=== PATIENT | female | born 1995 | race Caucasian/White ===

== ENCOUNTER 2019-11-16 22:37 | Observation (INO) | payer MEDICAID, SELFPAY ==
[2019-11-16 22:38] VITALS: BP 111/61; PULSE 62; RESP 16; TEMP 36.3; O2SAT 98; BMI 19.6
--- NOTE | 2019-11-16 22:43 | EKG12_ITS ---
Test Reason : SUBSTANCE ABUSE Blood Pressure : / mmHG Vent. Rate : 049 BPM Atrial Rate : 049 BPM P-R Int : 140 ms QRS Dur : 074 ms QT Int : 432 ms P-R-T Axes : 055 035 051 degrees QTc Int : 390 ms Sinus bradycardia Otherwise normal ECG Confirmed by ZOHAIB LE, MECHE ([id number]), food editor BREEZY MELGAR ([id number]) on 11/19/2019 1:03:14 PM Referred By: CL Confirmed By:MECHE PENNY MD
--- NOTE | 2019-11-16 22:45 | ED.VIS.GEN ---
History of Present Illness Chief Complaint: Substance Abuse Informant: Patient Onset: Today Narrative: 24-year-old female with no significant past medical history presents with concern for detox from fentanyl. States that she last used 5 hours ago. Has no physical complaints at this time. Last menstrual period 2 weeks ago. No concern for . Past Medical History - Allergies and Home Meds Allergies/Adverse Reactions: Allergies No Known Allergies Allergy (Verified 11/16/19 22:40) Primary Care Physician: Sunil Doctor,Out of [Primary Care Provider] - Prior records reviewed: Yes Past Medical History: None Surgical History: no surgical history Lives: Spouse/ Significant Other Smoking Status: Current every day smoker Alcohol: None Drugs: - - fentanyl Review of Systems General: Denies: Chills, Fever, Sweats Eyes: Denies: Visual changes - bilaterally, Diplopia ENT: Denies: Rhinorrhea, Sore throat Cardiovascular: Denies: Chest pain, Palpitations Respiratory: Denies: Dyspnea, Cough, Dyspnea on exertion Gastrointestinal: Denies: Abdominal pain, Nausea, Vomiting, Diarrhea, Melena, Hematochezia Genitourinary: Denies: Dysuria, Hematuria, Frequency Musculoskeletal: Denies: Back pain, Extremity Pain Skin: Denies: Rash, Wounds Neurological: Denies: Headache, Weakness, Numbness Physical Exam Vital Signs/Narrative: Vital Signs Temp Pulse Resp BP Pulse Ox 11/16/19 22:38 97.4 F L 62 16 111/61 98 Inital Vital Signs reviewed: Yes General: Well nourished, Well developed, No Acute Distress Head: Normocephalic, Atraumatic Eyes: Perrl, EOMI ENT: Moist mucous membranes, No rhinorrhea Neck: Supple, Nontender Cardiovascular: Regular rate, Regular rhythm, No murmurs Respiratory: No distress, CTA bilaterally, Chest nontender Abdomen: Soft, Nontender, Nondistended, Normal bowel sounds Back: Nontender, Normal Inspection Extremities: Nontender, No edema Skin: Normal color, No rash Neurological: Alert, Oriented x3, Cranial nerves II-XII grossly intact, Normal Strength, Normal Sensation Psychological: Normal affect, Normal Mood Diagnostic/Tx/Re-eval Laboratory Data 11/16/19 11/16/19 11/16/19 23:04 23:04 23:04 Sodium 139 Potassium 4.2 Chloride 105 Carbon Dioxide 29.0 Anion Gap 5 BUN 8 Creatinine 0.74 Estim Creat Clear Calc 93.09 Est GFR (MDRD) Af Amer 123 Est GFR (MDRD) Non-Af 102 BUN/Creatinine Ratio 10.8 Glucose 106 Calcium 8.6 Total Bilirubin 0.10 L AST 14 L ALT 15 Alkaline Phosphatase 54 Total Protein 6.5 Albumin 3.5 Globulin 3.0 Albumin/Globulin Ratio 1.2 Urine Test Ur Drug Screen Comment Ethyl Alcohol 7.0 11/16/19 23:04 Sodium Potassium Chloride Carbon Dioxide Anion Gap BUN Creatinine Estim Creat Clear Calc Est GFR (MDRD) Af Amer Est GFR (MDRD) Non-Af BUN/Creatinine Ratio Glucose Calcium Total Bilirubin AST ALT Alkaline Phosphatase Total Protein Albumin Globulin Albumin/Globulin Ratio Urine Test Negative Ur Drug Screen Comment Ethyl Alcohol - Rhythm Strip Rhythm Strip: Sinus Bradycardia Rate: 49 Ectopy: None - EKG Initial EKG Interpretation: Sinus Bradycardia - Sinus bradycardia at 49 bpm. IA interval 140 ms. QTC of 390 ms. No evidence of ST elevation or depression at this time. - Medical Decision Making Patient appears well nontoxic. Vital signs within normal limits. Lab work within normal limits. Patient will be admitted for further detoxification from opiates. Stable at time of admission. ED Disposition - Plan for ED Patient: Disposition: Acute Care Hospital [facility] Diagnosis: Opiate dependence Referrals: Sunil Doctor,Out of [Primary Care Provider] -
[2019-11-16 23:30] LABS: Internal QC Validated? YES +Cl - CLEAR BKGD; Pregnancy, Urine Negative Negative
[2019-11-16 23:32] LABS: ALB/GLOB Ratio 1.2 RATIO (0.9-2.4); AST(SGOT) 14 U/L (15-37); Alanine Aminotransfer ALT/SGPT 15 U/L (13-56); Albumin, Serum 3.5 g/dL (3.2-5.0); Alkaline Phosphatase 54 U/L (45-117); Anion Gap 5 (5-15); BUN 8 mg/dL (7-18); BUN/Creat Ratio 10.8 RATIO (10-20); Calcium,Total 8.6 mg/dL (8.5-10.1); Chloride 105 mmol/L (98-107); Creatinine, Serum 0.74 mg/dL (0.55-1.02); EST Glomerular Filtration Rate 102 mL/min (>60); Est Glom Filt Rate - Afr Amer 123 mL/min (>60); Estimated Creatinine Clearance 93.09 ml/min; Glucose 106 mg/dL (74-106); Potassium 4.2 mmol/L (3.5-5.1); Protein, Total 6.5 g/dL (6.4-8.2); Sodium Level 139 mmol/L (136-145)
--- NOTE | 2019-11-16 23:38 | HP.PCM_ITS ---
Problem List (1) Opioid abuse Status: Acute History of Present Illness Date of Admission: 11/16/19 Chief Complaint: Request for medical stabilisation for opioid withdrawal The patient is a 24 year old F with no significant past medical history who comes in requesting for medical stabilization for opioid withdrawal. Patient uses fentanyl on a regular basis. She has been trying to quit unsuccessfully. She last used fentanyl 6 hours before admission. She denied any withdrawal symptoms. Vitals in the ED showed temperature of 97.4F, heart rate 62, blood pressure 111/61, respiratory to 16, SPO2 is 98% on room air. CMP was unremarkable. Urine tox was positive for cannabinoids, alcohol level was 7.0 Past Medical History Allergies No Known Allergies Allergy (Verified 11/16/19 22:40) Home Medications: Ambulatory Orders Medication Instructions Recorded NK 11/16/19 Surgical History: no surgical history Psychiatric History: No pertinent psych hx [employer] ADVISOR History: spontaneous Lives: Spouse/ Significant Other Smoking Status: Current every day smoker Tobacco Use: Cigarettes Alcohol: None Drugs: Marijuana, - - fentanyl - *Family History Maternal History Items: No pertinent history Paternal History Items: No pertinent history Review of Systems Constitutional: Denies: Anorexia, Chills, Fever, Malaise, Weakness, Weight Change Eyes: Denies: Blurred vision, Cataracts, Conjunctivae Inflammation, Pain, Redness, Vision Change HEENT: Denies: Difficulty Hearing, Difficulty Swallowing, Head Aches, Hearing Changes, Sinus Congestion, Sinus Drainage Cardiovascular: Denies: Chest Pain, Claudication, Orthopnea, Palpitations, Paroxysmal Noc. Dyspnea Respiratory: Denies: Cough, Hemoptysis, Shortness of breath at rest, Shortness of breath upon exertion, Sputum production Gastrointestinal: Denies: Abdominal Pain, Constipation, Hematemesis, Hematochezia, Nausea, Vomiting Genitourinary: Denies: Dysuria, Frequency Musculoskeletal: Denies: Joint Pain, Joint Tenderness Skin: Denies: Rash, Wounds Neurological: Denies: Numbness, Tingling, Focal weakness Psychiatric: Denies: Anxiety, Depression, Homicidal Ideations, Suicidal Ideations Hematologic/ Lymphatic: Denies: Easy Bruising, Easy Bleeding VTE Information - Inpt Only VTE Present on Admission: No VTE Pharm Prophylaxis ordered?: Yes Patient Problems: Active and Suspected Problems Opioid abuse (Acute) - Physical Exam Vitals/I&O's: Vital Signs Temp Pulse Resp BP Pulse Ox 97.4 F L 62 16 111/61 98 11/16/19 22:38 11/16/19 22:38 11/16/19 22:38 11/16/19 22:38 11/16/19 22:38 Oxygen Delivery Method Room Air Weight: 50.3 kg Body Mass Index (BMI) 19.6 General: Alert, Oriented x3, Cooperative, No apparent distress HEENT: Atraumatic, PERRLA, EOMI, Normocephalic Oral: Moist Mucosa Neck: Supple Lungs: Clear to auscultation, Normal air movement Cardiovascular: Regular rate, Regular Rhythm, Normal S1, Normal S2, No murmurs Abdomen: Bowel Sounds Present, Soft, Non Tender, Non-Distended, No Hepato- splenomegaly Extremities: No edema Skin: No rashes Musculoskeletal: No Tenderness to Palpation of Joints or Extremities Lymphatic: No Cervical, Supraclavicular, or Inguinal Adenopathy Neurological: Cranial nerves II-XII grossly intact Psych/Mental Status: Normal Affect, Appropriate Laboratory Results 11/16/19 23:04: Sodium 139, Potassium 4.2, Chloride 105, Carbon Dioxide 29.0, Anion Gap 5, BUN 8, Creatinine 0.74, Estim Creat Clear Calc 93.09, Est GFR (MDRD) Af Amer 123, Est GFR (MDRD) Non-Af 102, BUN/Creatinine Ratio 10.8, Glucose 106, Calcium 8.6, Total Bilirubin 0.10 L, AST 14 L, ALT 15, Alkaline Phosphatase 54, Total Protein 6.5, Albumin 3.5, Globulin 3.0, Albumin/Globulin Ratio 1.2 11/16/19 23:04: Ethyl Alcohol 7.0 11/16/19 23:04: Urine Opiates Screen Pending, Urine Methadone Screen Pending, Ur Barbiturates Screen Pending, Ur Phencyclidine Scrn Pending, Ur Amphetamines Screen Pending, U Methamphetamin-MDMA Pending, U Benzodiazepines Scrn Pending, Urine Cocaine Screen Pending, U Cannabinoids Screen Pending, Ur Drug Screen Comment 11/16/19 23:04: Urine Test Negative Assessment/Plan All Active Problems Opioid abuse (Acute) 1. Chronic opioid use disorder, request for medical stabilization No signs of acute withdrawal now We will continue on the Subutex withdrawal protocol and monitor for withdrawal with CINA 2. Nicotine dependence, advised to quit Will offer replacements 3. DVT prophylaxis -low risk, early ambulation recommended Inpatient E&M: 99516 Init Hosp L2
[2019-11-16 23:52] LABS: Amphetamine Urine VISTA NEGATIVE (<1000 ng/mL); Barbiturate Urine VISTA NEGATIVE (< 200 ng/mL); Benzodiazepine Urine VISTA NEGATIVE (< 200 ng/mL); Cocaine Urine VISTA NEGATIVE (< 300 ng/mL); Ecstacy Urine VISTA NEGATIVE (< 500 ng/mL); Methadone Urine VISTA NEGATIVE (< 300 ng/mL); PCP Urine VISTA NEGATIVE (< 25 ng/mL); THC Urine VISTA POSITIVE (< 50 ng/mL); Vista UDS pH Range 7
[2019-11-16 23:55] VITALS: BP 98/59; PULSE 54; RESP 14; TEMP 36.9; O2SAT 98
[2019-11-17 00:28] VITALS: BMI 19.8
[2019-11-17 01:01] VITALS: BP 103/76; PULSE 56; RESP 18; TEMP 36.5; O2SAT 96
[2019-11-17] MEDS: Buprenorphine HCl 2 MG TAB.SUBL 4 MG SL ×2 (02:24→08:10)
[2019-11-17 05:37] VITALS: BP 128/64; PULSE 56; RESP 17; TEMP 36.9; O2SAT 98
[2019-11-17] MEDS: Dicyclomine 10 MG Capsule 20 MG PO (05:43)
[2019-11-17] MEDS: Loperamide 2 MG Capsule PO (07:07)
[2019-11-17] MEDS: Gabapentin 300 MG Capsule PO (07:19)
[2019-11-17] MEDS: Methocarbamol 750 MG Tablet 1500 MG PO (07:19)
[2019-11-17] MEDS: Ibuprofen 600 MG Tablet PO (07:19)
[2019-11-17] MEDS: Mag Hydrox/Al Hydrox/Simeth 30 ML UDC PO (07:20)
--- NOTE | 2019-11-17 07:45 | NURSING ---
This nurse in to round on pt and pt sitting up in bed, nose dripping and rocking back and forth holding stomach. I cant do this. pt keeps repeating. Pt encouraged that she can do this. Pt states this is the first time she has gone threw this. All the prn's that this nurse could give was given except for Catapres since pt refused it. Pt states, I need to walk. this nurse informed pt that she can walk in room or joseph but she needed to have her mask on if she walked in the joseph.
--- NOTE | 2019-11-17 07:55 | PN_ITS ---
Patient Problems: Active and Suspected Problems Acute opioid withdrawal (Acute) Subjective: Chief complaint: Follow-up after admission for acute opioid withdrawal. Patient seen and examined. No acute events overnight. At this time, patient is very anxious, restless, tremulous. She complains of abdominal cramps and diarrhea. Nursing staff reported that patient has been fine until this morning around 5 AM when she started having withdrawal symptoms. She was given all her PRN medications this morning. Her vital signs are stable. - Physical Exam Vitals/I&O's: Vital Signs Temp Pulse Resp BP Pulse Ox 98.4 F 56 L 17 128/64 H 98 11/17/19 05:37 11/17/19 05:37 11/17/19 05:37 11/17/19 05:37 11/17/19 05:37 Oxygen Delivery Method Room Air Weight: 111 lb 12.39 oz Body Mass Index (BMI) 19.8 Intake and Output for Last 24 Hours 11/15/19 11/16/19 11/17/19 23:59 23:59 23:59 Intake Total 250 / 250 Balance 250 / 250 General: Alert, Oriented x3, Cooperative, - - Anxious, restless. HEENT: Atraumatic, PERRLA, EOMI, Normocephalic Oral: Moist Mucosa, No Gingival or Mucosal Lesions/ Ulcerations Neck: Supple, No JVD, Negative Carotid Bruits, Trachea Midline, Thyroid Normal Size and Texture Lungs: Clear to auscultation, Normal air movement, No rhonchi, No wheeze, No rales Cardiovascular: Regular rate, Regular Rhythm, Normal S1, Normal S2, PMI Normal Abdomen: Bowel Sounds Present, Soft, Non-Distended, No Hepato-splenomegaly, Tender Extremities: No clubbing, No cyanosis, No edema Skin: No rashes, No breakdown Lymphatic: No Cervical, Supraclavicular, or Inguinal Adenopathy Neurological: Cranial nerves II-XII grossly intact, Neuro grossly intact Psych/Mental Status: Agitated, Anxious, Restless Laboratory Results 11/16/19 23:04: Sodium 139, Potassium 4.2, Chloride 105, Carbon Dioxide 29.0, Anion Gap 5, BUN 8, Creatinine 0.74, Estim Creat Clear Calc 93.09, Est GFR (MDRD) Af Amer 123, Est GFR (MDRD) Non-Af 102, BUN/Creatinine Ratio 10.8, G lucose 106, Calcium 8.6, Total Bilirubin 0.10 L, AST 14 L, ALT 15, Alkaline Phosphatase 54, Total Protein 6.5, Albumin 3.5, Globulin 3.0, Albumin/Globulin Ratio 1.2 11/16/19 23:04: Ethyl Alcohol 7.0 11/16/19 23:04: Urine Opiates Screen NEGATIVE, Urine Methadone Screen NEGATIVE, Ur Barbiturates Screen NEGATIVE, Ur Phencyclidine Scrn NEGATIVE, Ur Amphetamines Screen NEGATIVE, U Methamphetamin-MDMA NEGATIVE, U Benzodiazepines Scrn NEGATIVE, Urine Cocaine Screen NEGATIVE, U Cannabinoids Screen POSITIVE H, Ur Drug Screen Comment 11/16/19 23:04: Urine Test Negative Current Medications Acetaminophen (Tylenol) 500 mg PO Q4H PRN PRN PRN Reason: Temp > 100.4 F Al Hydroxide/Mg Hydroxide (Mylanta Ii) 30 ml PO Q6H PRN PRN PRN Reason: dyspesia Last Admin: 11/17/19 07:20 Dose: 30 ml Documented by: Bisacodyl (Dulcolax) 10 mg RECTAL DAILY PRN PRN Reason: Constipation Buprenorphine HCl (Buprenorphine Hcl) 4 mg SL Q8H CHRISTOPHER; Taper Stop: 11/20/19 02:29 Last Admin: 11/17/19 02:24 Dose: 4 mg Documented by: Clonidine (Catapres) 0.1 mg PO Q8H PRN PRN PRN Reason: RESTLESSNESS Dicyclomine HCl (Bentyl) 20 mg PO Q6H PRN PRN PRN Reason: Abdominal Discomfort Last Admin: 11/17/19 05:43 Dose: 20 mg Documented by: Gabapentin (Neurontin) 300 mg PO Q8H PRN PRN PRN Reason: moderate to severe anxiety Last Admin: 11/17/19 07:19 Dose: 300 mg Documented by: Hydroxyzine Pamoate (Vistaril Pamoate Capsule) 50 mg PO Q6H PRN PRN PRN Reason: mild anxiety Ibuprofen (Motrin) 600 mg PO Q8H PRN PRN PRN Reason: Pain Score 1-10/10 Last Admin: 11/17/19 07:19 Dose: 600 mg Documented by: Loperamide HCl (Imodium) 2 mg PO Q4H PRN PRN PRN Reason: LOOSE STOOLS Last Admin: 11/17/19 07:07 Dose: 2 mg Documented by: Methocarbamol (Methocarbamol) 1,500 mg PO Q6H PRN PRN PRN Reason: MUSCLE SPASM Last Admin: 11/17/19 07:19 Dose: 1,500 mg Documented by: Nicotine (Nicoderm Cq (Pbkc)) 14 mg TRANSDERM. DAILY [facility] Nicotine Polacrilex (Rugby Nicotine (Bkc)) 2 mg PO Q2H PRN PRN PRN Reason: Nicotine Craving Nutritional Formula (Lactose Free) (Ensure Enlive) 120 ml PO 4X/DAY CHRISTOPHER Ondansetron HCl (Zofran) 8 mg PO Q8H PRN PRN PRN Reason: NAUSEA Trazodone HCl (Desyrel) 100 mg PO QHS PRN PRN PRN Reason: INSOMNIA Medical Necessity - Tobacco Use Smoking Status: Current every day smoker Tobacco Use: Cigarettes Assessment/Plan All Active Problems Acute opioid withdrawal (Acute) This is a 24 years old female patient presented to the emergency room requesting admission for acute opioid withdrawal for medical stabilization. #1 acute opiate withdrawal: Patient has been snorting fentanyl. Last use was yesterday 5 hours before admission. Around 5 AM this morning, patient started having withdrawal symptoms. At this time, she is very symptomatic, restless, anxious. She is on tapering Subutex, PRN Catapres, Bentyl, Neurontin, Vistaril, Motrin, Imodium, methocarbamol, Zofran and trazodone. Her vital signs are stable. BMP and LFT reviewed, was unremarkable. Serum test was negative. Urine drug screen was positive for cannabinoids. Blood alcohol level was 7. Plan: We will give Subutex now, continue other treatments. #2 opioid abuse: Patient has been snorting fentanyl every day. Plan as above. #3 DVT prophylaxis: Low risk patient, no prophylaxis indicated. This note was generated with [employer] dictation software. It may contain incorrect words, spelling, and punctuation that were not noted in checking the note before signing. Inpatient E&M: 03854 Subs Hosp L2
[2019-11-17 08:11] VITALS: BP 130/86; PULSE 81; RESP 20; TEMP 36.9; O2SAT 99
[2019-11-17] MEDS: Ondansetron 8 MG Tablet PO (08:17)
--- NOTE | 2019-11-17 09:00 | NURSING ---
Aware per staff member Pari MONTES that pt was found congregating with patient, significant other in hallway without a mask for the second time by her this a.m. Aware of 3 occassions this a.m. this patient and her significant other have been found together and she had been reminded of RAMP agreement. Pt found ambulating the hallway toward [id number], requested we return to her room for a conversation. Discussed patient being found multiple times congregretating with 318, significant other. Discussed the RAMP agreement of no visitors she had signed and that this included her significant other. Discussed that although she is permitted to ambulate the hallway we request that she is not congregating with her significant other or going into each other's rooms. Informed patient that this nurse made the same request to her significant other as well. Discussed with the patient the benefit to this rule and ability it provides to minimize distractions and focus on her own recovery. Dispite this conversation, pt stated she would like to sign AMA forms and leave. Primary RN informed.
--- NOTE | 2019-11-17 11:18 | DS.PCM_ITS ---
Discharge Date and Diagnosis - Problem List Patient Problems: Active and Suspected Problems Acute opioid withdrawal (Acute) Date of Admission: 11/16/19 Date of Discharge: 11/17/19 - Primary Discharge Diagnosis Acute Problems: Active Problems Acute opioid withdrawal (Acute) - Secondary Discharge Diagnosis Chronic Problems: Chronic Problems Opioid abuse (Chronic) Hospital Course and Treatment Summary of Care Provided: The patient is a 24 year old F presented to the emergency room requesting admission for acute opioid withdrawal for medical stabilization. Patient has been snorting fentanyl daily and her last use was around 6 hours before admission. At the time of admission, patient had no withdrawal symptoms. She was admitted, started on Subutex taper as well as PRN Catapres, Bentyl, Neurontin, Vistaril, Motrin, Imodium, methocarbamol, Zofran and trazodone. Her BMP and LFT were unremarkable. Serum venous test was negative. Urine drug screen was positive for cannabinoids. Blood alcohol level was 7. This morning around 5 AM, she started having symptoms of withdrawal. She started to become very anxious, restless, having abdominal cramps and diarrhea. She was given Subutex as well as her PRN medications. Patient was walking in the hallways on the floor and she was found congregating with the patient who was a significant other on multiple occasions. Patient was reminded of RAMP agreement. Nursing staff spoke with the patient on multiple occasions and expressing to her the importance of compliance with our agreement. Patient stated that she would like to leave the hospital AGAINST MEDICAL ADVICE. Patient left the hospital AMA. Patient Problems: Active and Suspected Problems Acute opioid withdrawal (Acute) - Physical Exam Vitals/I&O's: Vital Signs Temp Pulse Resp BP Pulse Ox 98.4 F 81 20 H 130/86 H 99 11/17/19 08:11 11/17/19 08:11 11/17/19 08:11 11/17/19 08:11 11/17/19 08:11 Oxygen Delivery Method Room Air Weight: 111 lb 12.39 oz Body Mass Index (BMI) 19.8 Intake and Output for Last 24 Hours 11/15/19 11/16/19 11/17/19 23:59 23:59 23:59 Intake Total 250 / 250 Balance 250 / 250 General: Alert, Oriented x3, Cooperative, - - Restless, anxious. HEENT: Atraumatic, PERRLA, EOMI, Normocephalic Oral: Moist Mucosa, No Gingival or Mucosal Lesions/ Ulcerations Neck: Supple, No JVD, Negative Carotid Bruits, Trachea Midline, Thyroid Normal Size and Texture Lungs: Clear to auscultation, Normal air movement, No rhonchi, No wheeze, No rales Cardiovascular: Regular rate, Regular Rhythm, Normal S1, Normal S2, PMI Normal Abdomen: Bowel Sounds Present, Soft, Non-Distended, No Hepato-splenomegaly, Tender Extremities: No clubbing, No cyanosis, No edema Skin: No rashes, No breakdown Lymphatic: No Cervical, Supraclavicular, or Inguinal Adenopathy Neurological: Cranial nerves II-XII grossly intact, Neuro grossly intact Psych/Mental Status: Anxious, Restless Laboratory Results 11/16/19 23:04: Sodium 139, Potassium 4.2, Chloride 105, Carbon Dioxide 29.0, Anion Gap 5, BUN 8, Creatinine 0.74, Estim Creat Clear Calc 93.09, Est GFR (MDRD) Af Amer 123, Est GFR (MDRD) Non-Af 102, BUN/Creatinine Ratio 10.8, Glucose 106, Calcium 8.6, Total Bilirubin 0.10 L, AST 14 L, ALT 15, Alkaline Phosphatase 54, Total Protein 6.5, Albumin 3.5, Globulin 3.0, Albumin/Globulin Ratio 1.2 11/16/19 23:04: Ethyl Alcohol 7.0 11/16/19 23:04: Urine Opiates Screen NEGATIVE, Urine Methadone Screen NEGATIVE, Ur Barbiturates Screen NEGATIVE, Ur Phencyclidine Scrn NEGATIVE, Ur Amphetamines Screen NEGATIVE, U Methamphetamin-MDMA NEGATIVE, U Benzodiazepines Scrn NEGATIVE, Urine Cocaine Screen NEGATIVE, U Cannabinoids Screen POSITIVE H, Ur Drug Screen Comment 11/16/19 23:04: Urine Test Negative Home Medications: Medications to take at Discharge NK 11/16/19 Primary Care Physician: Sunil Doctor,Out of [NON-STAFF] - Disposition: Against Medical Advice Minutes spent on discharge:: 27 Patient Condition:: Stable Medical Necessity - Tobacco Use Smoking Status: Current every day smoker Tobacco Use: Cigarettes Meaningful Use Info Meaningful Use Diagnoses (Choose all that apply): None applicable Inpatient E&M: 49562 [facility]
== END 2019-11-17 09:13 | disposition left against medical advice (07) ==
LOC: ED 23:43 → MS3 11-17 04:19
PROVIDERS: Admitting Provider Internal Medicine; Emergency Provider Emergency Medicine; Visit Provider Hospitalist
DX: F11.23 Opioid dependence with withdrawal (principal); F17.210 Nicotine dependence, cigarettes, uncomplicated
CPT/HCPCS: 36415; 80053; 80307; 80320; 81025; 93005; 99218; 99283; G0378; G0480